=== PATIENT | male | born 1955 | race Caucasian/White ===

== ENCOUNTER 2017-12-02 14:26 | Emergency (ER) | payer BC, SELFPAY ==
[2017-12-02 14:27] VITALS: BP 153/90; PULSE 69; RESP 16; TEMP 36.8; O2SAT 97; BMI 27.8
--- NOTE | 2017-12-02 14:51 | EKG12_ITS ---
Test Reason : PALPS Blood Pressure : / mmHG Vent. Rate : 064 BPM Atrial Rate : 064 BPM P-R Int : 186 ms QRS Dur : 092 ms QT Int : 382 ms P-R-T Axes : 059 014 041 degrees QTc Int : 394 ms Normal sinus rhythm Normal ECG Confirmed by JANINE PINTO, MARY ([id number]), industrial editor JEWELL DIXON ([id number] on 12/05/2017 1:52:42 PM Referred By: Confirmed By:MARY MEHTA MD
[2017-12-02 14:59] LABS: Hematocrit 45.3 % (40-54); Hemoglobin 15.5 g/dl (13.0-16.5); Mean Corp Hgb Conc 34.2 g/gl (32-36); Mean Corpuscular Hgb 28.3 pg (27.0-32.0); Mean Corpuscular Volume 82.8 fL (80-94); Mean Platelet Vol. 10.5 fl (6.2-12.0); Platelet Count 206 K/mm3 (150-450); RBC Distribution Width CV 13.5 % (11.6-14.6); RBC Distribution Width SD 41.3 fl (35.1-43.9); Red Blood Count 5.47 M/mm3 (4.6-6.2); White Blood Count 6.6 K/mm3 (4.4-11.0)
[2017-12-02 15:00] LABS: Scan Indicated on CBC? Y/N NO
[2017-12-02 15:12] LABS: Anion Gap 7 (5-15); BUN 19 mg/dL (7-18); BUN/Creat Ratio 20.3 RATIO (10-20); Calcium,Total 8.7 mg/dL (8.5-10.1); Chloride 107 mmol/L (98-107); Creatinine, Serum 0.94 mg/dL (0.70-1.30); EST Glomerular Filtration Rate 87 mL/min (>60); Est Glom Filt Rate - Afr Amer 105 mL/min (>60); Estimated Creatinine Clearance 83.05 ml/min; Glucose 96 mg/dL (74-106); Sodium Level 141 mmol/L (136-145)
--- NOTE | 2017-12-02 15:50 | ED.DCSUM_ITS ---
- ER Visit Summary Date of Service: 12/02/17 Chief Complaint: Palpitations History of Present Illness: The patient is a 62 M Zentz with palpitations and states he feels his heartbeat throughout his entire body. Onset this morning while at work. He had no other symptoms. He denies shortness of breath, chest discomfort, difficulty breathing, nausea or vomiting or diaphoresis. Review of systems negative except for palpitations. Past medical history negative medications none Physical Examination: Vital signs are remarkable for an elevated blood pressure 153/90 he is not febrile or hypoxic. HEENT exam is unremarkable. Heart is regular without murmur, gallop or rub. S1 and S2 are normal. Lungs are clear to auscultation with good movement of air bilaterally. Abdomen is soft nontender with normal bowel sounds. There is no asymmetry, swelling, discoloration, leg vein distention, palpable cords or tenderness along the distribution of the deep venous system. He has a depressed affect. Neuro exam is nonfocal. Test Results: EKG revealed a sinus rhythm and is normal. CBC and BMP are normal. Emergency Department Course and Treatment: EKG was obtained to see if there is any evidence of preexcitation syndrome, PACs or PVCs. He also was placed on a monitor which was a sinus rhythm without ectopy CBC was obtained assessing for anemia and what I panel assessing for electron abdomen which may explain his palpitations. Treatment Plan: Follow-up physician as needed Disposition: Discharged to home in stable condition Impression: Palpitations This note was generated with [employer] dictation software. It may contain incorrect words, spelling, and punctuation that were not noted in review of the chart prior to signing ED Disposition - Plan for ED Patient: Disposition: Home or Assisted Living Chief Complaint: Palpitations Instructions: ED Palpitations Referrals: Benton Coelho MD [Primary Care Provider] - 3-5 Days if not improving
[2017-12-02 15:53] VITALS: BP 123/85; PULSE 56; RESP 14; O2SAT 99
== END 2017-12-02 16:01 | disposition home or self-care (01) ==
PROVIDERS: Emergency Provider Emergency Medicine; Family Provider Family Medicine; PCP Family Medicine
DX: R00.2 Palpitations (principal)
CPT/HCPCS: 80048; 85027; 93005; 99282; A4216

== ENCOUNTER 2022-05-19 17:44 | Emergency (ER) | payer MEDICARE, SELFPAY ==
[2022-05-19 17:45] VITALS: BP 129/68; PULSE 94; RESP 16; TEMP 37.1; O2SAT 97; BMI 26.8
--- NOTE | 2022-05-19 18:18 | CM.ED ---
Patient has a [facility] physician as his PCP. Unable to recall the name of his PCP. Meera ASH
[2022-05-19 18:55] LABS: Bacteria 0 SEEN /hpf (None Seen); Mucous, Urine 0 SEEN /hpf (<or=2+); Red Blood Cells-Urine 0 SEEN /hpf (0-5); Squamous Epithelial Cells - UA 0 SEEN /hpf (0-5); White Blood Cells 0 SEEN /hpf (0-5)
--- NOTE | 2022-05-19 18:59 | EX.ED.GUMALE ---
HPI History of Present Illness Chief Complaint: Complaint Detail of Chief Complaint: Urinary frequency. Enlarged prostate. Informant: patient Pain Onset: Month(s) Context: Gradual Onset Timing: Intermittent Current Severity: Mild Maximum Severity: Mild Narrative Narrative: 56-year-old male history of enlarged prostate and asthma. States for the last year he has had urinary symptoms. He has not seen a urologist. He said the last week he has had increasing urinary frequency. Waking up several times a night to urinate. Does not feel like he is emptying his bladder. Denies dysuria. Denies hematuria or clots. Denies any fever. He has never had a Hinton catheter. He says gotten the point now that he came in to have this evaluated. He is having trouble urinating at all. Only small amounts. Prior similar symptoms: Yes Recent Illness/Hospitalization: No PFSH PFSH Medical History Asthma Home Medications albuterol sulfate 90 mcg/actuation aerosol inhaler (Ventolin HFA) 1 puff inhalation Q4H PRN PRN Wheezing 12/02/17 [History Last Taken Unknown] tamsulosin 0.4 mg capsule (Flomax) 0.4 mg PO QHS #30 caps 05/19/22 [Rx Last Taken Unknown] Allergy/AdvReac Type Severity Reaction Status Date / Time No Known Allergies Allergy Verified 12/02/17 14:28 Social History Smoking Status: Never smoker ROS ROS ED ROS Narrative Urinary frequency. Review of Systems ROS Unobtainable: Denies due to encephalopathy Constitutional Constitutional ED: Denies chills or fever(s) Eyes Eyes: Denies blurry vision ENT ENT ED: Denies ear pain Cardiovascular Cardiovascular: Denies chest pain Respiratory/Chest Respiratory/Chest: Denies cough or dyspnea Gastrointestinal Gastrointestinal: Denies abdominal pain Genitourinary Genitourinary ED: Reports urinary frequency; Denies dysuria or hematuria Musculoskeletal Musculoskeletal: Denies arthralgias Integumentary Denies abscess Neurologic Neurologic: Denies headache(s) Psychiatric Psychiatric: Denies anxiety Endocrine Endocrinology: Denies polydipsia Hematologic/Lymphatic Hematologic/Lymphatic: Denies easy bleeding Allergic/Immunologic Allergic/Immunologic ED: Denies mouth swelling EXAM Physical Exam Narrative Exam Narrative: C6-year-old male no acute distress vital signs stable afebrile. HEENT exam unremarkable. Neck nontender. Lungs clear. Heart regular rhythm no murmur. Abdomen soft nondistended normal bowel sounds no peritoneal signs. Mild suprapubic tenderness. External exam unremarkable. Circumcised male. Nontender. Moving all 4 extremities. Nontender no edema. Awake and alert. No focal motor deficits. Const Vital Signs: 05/19/22 17:45 05/19/22 17:45 Temperature 98.8 F 98.8 F Temperature Source Temporal Temporal Pulse Rate 94 94 Respiratory Rate 16 16 Blood Pressure 129/68 H 129/68 H Blood Pressure Mean 88 88 Pulse Ox 97 97 Oxygen Delivery Method Room Air Room Air Positive well nourished and well developed; Negative for obese, cachectic, contractures or unkempt General Appearance ED: well developed and NAD; Negative for unkempt, cachectic, contractures or pallor Nutritional Appearance: Negative for cachectic or obese HEENT Reports moist mucous membranes; Denies dry mucous membranes normocephalic and atraumatic; Negative for trauma Mouth ED: No dry mucous membranes Mouth: No dry mucous membranes Eyes PERRL and EOMs intact bilaterally General Eye ED: Negative for pale conjunctiva or scleral icterus Neck no lymphadenopathy, supple and no JVD General: Negative for tenderness Resp normal respiratory effort and clear to auscultation bilaterally Effort and Inspection: Negative for retractions Auscultation: Negative for rales or rhonchi Cardio regular rate, regular rhythm, S1 normal heart sound, S2 normal heart sound and no murmurs GI non-distended and no masses; Negative for non-tender Auscultation: normoactive bowel sounds Palpation: soft and tender Negative for no CVA tenderness Bladder / Kidney Exam: No CVA tenderness Groin / Perineum Exam: Negative for edema Back/Spine no CVA tenderness General Back: Negative for CVA tenderness Extremity normal to inspection General Extremety ED: Negative for edema General Extremity: Negative for edema Neuro oriented x3, moves all extremities and no focal motor deficits Sensorium / Orientation: alert, oriented to person, oriented to place and oriented to time; Negative for orientation impaired or confused Motor Exam: strength 5/5 throughout Psych mental status grossly normal Appearance: Negative for unkempt Attitude: No agitated Mood & Affect: Negative for depressed Thought Process: normal thought process Thought Content: normal thought content Skin General Skin Exam: Negative for jaundice or pallor Lesions: no lesions Rashes: no rashes MDM MDM MDM Narrative Medical decision making narrative: 66-year-old male with what appears to be enlarged prostate with urinary frequency and suspected urinary retention. Bladder scan was only around 70 but I am unsure of the accuracy. Hinton cath will be placed. CBC and chemistry and urinalysis will be obtained. Repeat exam patient doing well. When the nurses placed a Hinton catheter he had about 170 cc of urine. It was clear with only a small amount of blood which I thought was trauma from placing the Hinton. Repeat exam he is doing well. We discussed options pulling the full Hinton catheter and starting him on Flomax and follow-up with urologist or leaving the Hinton catheter in starting him a Flomax and follow-up with the urologist and he chose to leave the Hinton catheter in. Lab Data Attestation: I reviewed the patient's lab results. Lab results narrative: CBC shows elevated white count of 17.4. H&H of 15 and 45. Electrolytes show a gap of 8 BUN and creatinine are 19 and 1.25. Glucose 140. UA negative. No nitrates no white or red cells. No bacteria. Labs: Laboratory Results - last 24 hr 05/19/22 05/19/22 05/19/22 18:52 19:15 19:15 WBC 17.4 H RBC 5.33 Hgb 15.1 Hct 45.9 MCV 86.1 MCH 28.3 MCHC 32.9 RDW Std Deviation 44.2 H RDW Coeff of Yuly 14.2 Plt Count 224 MPV 10.4 Immature Gran % (Auto) 0.400 Neut % (Auto) 83.6 H Lymph % (Auto) 5.6 L [place] % (Auto) 10.1 H Eos % (Auto) 0.1 Baso % (Auto) 0.2 Absolute Neuts (auto) 14.5 H Absolute Lymphs (auto) 0.98 Nucleated RBC % 0 Sodium 140 Potassium 3.9 Chloride 103 Carbon Dioxide 29.0 Anion Gap 8 BUN 19 H Creatinine 1.25 Estim Creat Clear Calc 59.21 Est GFR (MDRD) Af Amer 74 Est GFR (MDRD) Non-Af 61 BUN/Creatinine Ratio 15.2 Glucose 140 H Calcium 8.6 Urine Color Yellow Urine Clarity Clear Urine pH 7.0 Ur Specific [place] 1.010 Urine Protein Negative Urine Glucose (UA) Normal Urine Ketones Negative Urine Occult Blood Negative Urine Nitrite Negative Urine Bilirubin Negative Urine Urobilinogen 1 H Ur Leukocyte Esterase Negative Urine RBC 0 SEEN Urine WBC 0 SEEN Ur Squamous Epith Cells 0 SEEN Urine Bacteria 0 SEEN Urine Mucus 0 SEEN Discharge Plan Triage Chief Complaint: Complaint ED Provider: Francisco Vincent Dx/Rx/DC Orders Clinical Impression: Urinary frequency, Benign prostatic hyperplasia, Acute urinary retention Instructions: Benign Prostatic Hyperplasia, ED Hinton Catheter, Care Prescriptions: New tamsulosin [Flomax] 0.4 mg capsule 0.4 mg PO QHS Qty: 30 0RF No Action albuterol sulfate [Ventolin HFA] 1 INHALER inhaler 1 puff inhalation Q4H PRN PRN (Reason: Wheezing) Primary Care Provider: Russ Grimes Referrals: Pedro Garcia MD [Med Staff - Active Staff] - As soon as possible Benton Coelho MD [Non-Staff] - Activity Restrictions/Additional Instructions: Empty your Hinton catheter whenever three quarters full. Follow-up with either your primary care doctor or the urologist here at the hospital Dr. Forrest Garcia for further evaluation. They will remove the Hinton catheter and see if you are urinating appropriately. Flomax once a day to help hopefully enable you to pee more normally and reduce the size your prostate. Disposition Disposition: Home, Self Care
[2022-05-19 19:03] LABS: Color, Urine Yellow (Yellow); Glucose, Dipstick Normal (Normal); Ketone-Dipstick Negative (Negative); Leukocyte Esterase-Dipstick Negative /ul (Negative); Nitrite-Dipstick Negative (Negative); Occult Blood-Urine Negative /ul (Negative); Protein-Dipstick Negative (Negative); Urine Bilirubin Dipstick Negative (Negative); Urine Clarity Clear (Clear); Urine Urobilinogen 1 mg/dl (Normal)
[2022-05-19 19:33] LABS: Absolute Lymphocyte Count 0.98 X10^3/uL (0.83-4.51); Absolute Neutrophil Count 14.5 X10^3/uL (2.0-7.7); Basophil# 0.03 X10^3/uL; Basophil% 0.2 % (0-1); Eosinophil# 0.02 X10^3/uL; Eosinophils% 0.1 % (0-5); Hematocrit 45.9 % (40-54); Hemoglobin 15.1 g/dL (13.0-16.5); Lymphocyte # 0.98 X10^3/ul (0.83-4.51); Lymphocyte % 5.6 % (19-41); Mean Corp Hgb Conc 32.9 g/dL (32-36); Mean Corpuscular Hgb 28.3 pg (27.0-32.0); Mean Corpuscular Volume 86.1 fL (80-94); Mean Platelet Vol. 10.4 fl (6.2-12.0); Monocyte# 1.76 X10^3/uL; Monocyte% 10.1 % (0-10); NRBC Flagged by Analyzer 0 % (0-5); Neutrophil # 14.49 X10^3/uL (2.7-7.7); Neutrophil % 83.6 % (47-70); POSITIVE DIFFERENTIAL YES; Platelet Count 224 K/mm3 (150-450); RBC Distribution Width CV 14.2 % (11.6-14.6); RBC Distribution Width SD 44.2 fl (35.1-43.9); Red Blood Count 5.33 M/mm3 (4.6-6.2); White Blood Count 17.4 K/mm3 (4.4-11.0)
[2022-05-19 19:43] LABS: Differential Indicated SCAN CRITERIA MET
[2022-05-19 19:47] LABS: Anion Gap 8 (5-15); BUN 19 mg/dL (7-18); BUN/Creat Ratio 15.2 RATIO (10-20); Calcium,Total 8.6 mg/dL (8.5-10.1); Chloride 103 mmol/L (98-107); Creatinine, Serum 1.25 mg/dL (0.70-1.30); EST Glomerular Filtration Rate 61 mL/min (>60); Est Glom Filt Rate - Afr Amer 74 mL/min (>60); Estimated Creatinine Clearance 59.21 ml/min; Glucose 140 mg/dL (74-106); Potassium 3.9 mmol/L (3.5-5.1); Sodium Level 140 mmol/L (136-145)
[2022-05-19] MEDS: Acetaminophen 500 MG Tablet 1000 MG PO (20:56)
[2022-05-19 21:13] LABS: Platelet Estimate ADEQUATE (ADEQ); Red Cell Morphology NORM C+C NORMAL (NORM C&C)
[2022-05-19 21:59] VITALS: BP 119/77; PULSE 101; RESP 18; TEMP 38.2; O2SAT 94
--- NOTE | 2022-05-19 22:00 | ED.RN ---
PT'S CATHETER LEAKED. ATTEMPTED TO DEFLATE RE-INFLATE BALLOON. MONITORED FOR 20M, THURMAN STILL LEAKING. IRRIGATED THURMAN. NO ADDITIONAL LEAKING NOTED AROUND MEATUS. CHANGED TO LEG BG AND DC'D PT. PT & 'S QUESTIONS ASKED AND ANSWERED. PT CONFIRMS UNDERSTANDING OF DC INSTRUCTIONS.
[2022-05-21 12:37] LABS: Pathologist Review Reviewed
== END 2022-05-19 22:03 | disposition home or self-care (01) ==
PROVIDERS: Emergency Provider Emergency Medicine; PCP Physician Assistant; Visit Provider Emergency Medicine
DX: N40.1 Benign prostatic hyperplasia with lower urinary tract symptoms (principal); R35.0 Frequency of micturition; R33.8 Other retention of urine; J45.909 Unspecified asthma, uncomplicated
CPT/HCPCS: 51702; 80048; 81001; 85025; 99284; A4216

== ENCOUNTER 2022-06-01 11:24 | Emergency (ER) | payer MEDICARE, SELFPAY ==
[2022-06-01 11:25] VITALS: BP 131/68; PULSE 79; RESP 18; TEMP 36.1; O2SAT 100; BMI 25.5
--- NOTE | 2022-06-01 11:43 | EDS_ITS ---
HPI HPI - GI History of Present Illness Chief Complaint: Abd Pain Informant: patient and spouse/S.O. Narrative Narrative: Patient sent in here from PCP outpatient CT abdomen pelvis concerning stating perforation. Patient has intermittent suprapubic left lower quadrant pain for the past couple weeks. Patient reports was seen for urine retention couple weeks ago in the ED Hinton catheter was placed proximally 200 cc output. He was reporting urine frequency at that time. From report wanted to leave it if any follow-up with urology Dr. Garcia few days later Hinton was removed he is put on antibiotics for coverage of urinary infection. Continue to have intermittent increasing pain. 3 days ago significant reporting having fevers. He saw PCP office has been on Augmentin. CT scan performed today Miya went home he was called back to go to the emergency department. He is here currently. No history of diverticulitis in the past no colonoscopies in the past. Appendectomy in the past. Prior similar symptoms: No PFSH PFSH Medical History Asthma Home Medications albuterol sulfate 90 mcg/actuation aerosol inhaler (Ventolin HFA) 1 puff inhalation Q4H PRN PRN Wheezing 12/02/17 [History Last Taken Unknown] tamsulosin 0.4 mg capsule (Flomax) 0.4 mg PO QHS #30 caps 05/19/22 [Rx Last Taken Unknown] Allergy/AdvReac Type Severity Reaction Status Date / Time No Known Allergies Allergy Verified 06/01/22 11:27 Social History Smoking Status: Never smoker [facility] ED Constitutional Constitutional ED: Reports fever(s); Denies chills or sweats Eyes Eyes: Denies change in vision ENT ENT ED: Denies dysphagia or sore throat Cardiovascular Cardiovascular: Denies chest pain, leg edema, palpitations or racing heartbeat Respiratory/Chest Respiratory/Chest: Denies cough, dyspnea or dyspnea on exertion Gastrointestinal Gastrointestinal: Reports abdominal pain; Denies diarrhea, nausea or vomiting Genitourinary Genitourinary ED: Denies dysuria, hematuria or urinary frequency Musculoskeletal Musculoskeletal: Denies back pain, extremity pain or neck pain Integumentary Denies rash or wounds Neurologic Neurologic: Denies headache(s), paresthesias or weakness EXAM Physical Exam Const Vital Signs: 06/01/22 11:25 06/01/22 12:25 06/01/22 13:00 Temperature 97.0 F L Temperature Source Temporal Pulse Rate 79 Respiratory Rate 18 18 18 Blood Pressure 131/68 H Blood Pressure Mean 89 Pulse Ox 100 Oxygen Delivery Method Room Air 06/01/22 14:00 06/01/22 15:00 06/01/22 13:57 Temperature Temperature Source Pulse Rate Respiratory Rate 18 18 Blood Pressure 125/76 H Blood Pressure Mean 92 Pulse Ox Oxygen Delivery Method Positive well nourished and well developed General Appearance ED: well developed and NAD HEENT Reports moist mucous membranes normocephalic and atraumatic Eyes PERRL, EOMs intact bilaterally and conjunctivae normal General Eye ED: Yes normal appearance of both eyes Neck no lymphadenopathy and supple General: Negative for tenderness Chest Wall Chest: Negative for tenderness Resp normal respiratory effort and normal air movement Effort and Inspection: symmetric chest movement; Negative for respiratory distress Cardio regular rate, regular rhythm and no murmurs Peripheral Pulses: pulses 2+ throughout GI normal to inspection, nondistended, normoactive bowel sounds GI Narrative: Tender to deep palpation left lower quadrant, there is no guarding or rebound. Palpation: Negative for guarding or rebound tenderness present Back/Spine no CVA tenderness and no thoracic nor lumbar tenderness Extremity normal to inspection General Extremety ED: Negative for edema or tenderness General Extremity: Negative for edema Neuro oriented x3 and no sensory deficits noted Sensorium / Orientation: awake and alert Skin no rashes or lesions noted and no wounds MDM MDM MDM Narrative Medical decision making narrative: Patient nontoxic vital signs are stable. With reported perforation from history, assuming its of microperforation with his exam. Attempting to obtain report at this time. Labs were obtained with lactic acid blood cultures fluids. He will be kept NPO. I will order Zosyn for coverage at this time. Declines any pain medicines. 1230: Obtaining report from Katelynn Chacon, no concerns for pneumoperitoneum. From report notes an irregular shaped extraluminal air 3.1 x 11.3 cm. There is a punctate foci of extraluminal air distal to the sigmoid level. Punctate extraluminal air in the left upper abdomen with thickening of the duodenal proximal jejunal mucosa with fat stranding. Concerns for origin being at the duodenal jejunal junction. Patient clinically remained stable antibiotics are given I spoke with covering surgeon Dr. Salas discussed findings on CT. He will come see the patient. Currently working on getting the imagings to be reviewed at this facility. CBC returned white count currently 8.9 hemoglobin 14.8. 1240: Nursing able to communicate over facility, they are trying to push the imagings to the radiology department currently. Patient and spouse is updated. 1310: Patient evaluated by surgeon Dr. Salas, images were able to be reviewed in the system, he notes the concern is from the distal third of small bowels. He states this requires management at a tertiary center and cannot be done here. He recommends transfer. 1350: I spoke with transfer line at [facility] who relayed message to surgeon Dr. Reed, wanted patient to go to the emergency department to be evaluated surgery. I spoke with the ED physician Dr. Egan updated on patient's history and findings. Image studies will be sent with patient to the emergency department there. Family and patient updated. Lab Data Attestation: I reviewed the patient's lab results. Labs: Laboratory Results - last 24 hr 06/01/22 06/01/22 06/01/22 12:05 12:05 12:05 WBC 8.9 RBC 5.19 Hgb 14.8 Hct 43.6 MCV 84.0 MCH 28.5 MCHC 33.9 RDW Std Deviation 41.6 RDW Coeff of Yuly 13.5 Plt Count 304 MPV 9.8 Immature Gran % (Auto) 0.300 Neut % (Auto) 81.4 H Lymph % (Auto) 11.[address] [place] % (Auto) 6.2 Eos % (Auto) 0.6 Baso % (Auto) 0.5 Absolute Neuts (auto) 7.2 Absolute Lymphs (auto) 0.97 Nucleated RBC % 0 PT 13.9 INR 1.1 APTT 25.8 Sodium 138 Potassium 3.8 Chloride 105 Carbon Dioxide 26.0 Anion Gap 7 BUN 14 Creatinine 0.90 Estim Creat Clear Calc 82.24 Est GFR (MDRD) Af Amer 108 Est GFR (MDRD) Non-Af 90 BUN/Creatinine Ratio 15.6 Glucose 124 H Lactic Acid Calcium 8.6 Blood Type Antibody Screen 06/01/22 06/01/22 12:05 12:05 WBC RBC Hgb Hct MCV MCH MCHC RDW Std Deviation RDW Coeff of Yuly Plt Count MPV Immature Gran % (Auto) Neut % (Auto) Lymph % (Auto) [place] % (Auto) Eos % (Auto) Baso % (Auto) Absolute Neuts (auto) Absolute Lymphs (auto) Nucleated RBC % PT INR APTT Sodium Potassium Chloride Carbon Dioxide Anion Gap BUN Creatinine Estim Creat Clear Calc Est GFR (MDRD) Af Amer Est GFR (MDRD) Non-Af BUN/Creatinine Ratio Glucose Lactic Acid 1.0 Calcium Blood Type A POSITIVE Antibody Screen NEGATIVE Critical Care Time Critical Care Time: Yes Critical care time (excluding procedures): 30-74 minutes, Discussing w/Patient &/or Family/Supervisor Fine Grading, Discussing w/Consultants, Arranging Admission or Transfer, Performing Direct Patient Care at Bedside and - (35 minutes) Discharge Plan Triage Chief Complaint: Abd Pain ED Provider: Roderick Loo Dx/Rx/DC Orders Clinical Impression: Pneumoperitoneum, Abdominal pain, History of BPH, Inflammation of small intestine Prescriptions: No Action albuterol sulfate [Ventolin HFA] 1 INHALER inhaler 1 puff inhalation Q4H PRN PRN (Reason: Wheezing) tamsulosin [Flomax] 0.4 mg capsule 0.4 mg PO QHS Qty: 30 0RF Primary Care Provider: Russ Grimes Referrals: Russ Grimes PA [Primary Care Provider] - Disposition Disposition: DC/Tx to Another Type of HCF Discharge Location: [facility] Discharge Date/Time: 06/01/22 15:31
[2022-06-01] MEDS: 0.9% Normal Saline 1,000 ML 1000 ML IV (11:56)
[2022-06-01 12:25] VITALS: RESP 18
[2022-06-01 12:25] LABS: Absolute Lymphocyte Count 0.97 X10^3/uL (0.83-4.51); Absolute Neutrophil Count 7.2 X10^3/uL (2.0-7.7); Basophil# 0.04 X10^3/uL; Basophil% 0.5 % (0-1); Eosinophil# 0.05 X10^3/uL; Eosinophils% 0.6 % (0-5); Hematocrit 43.6 % (40-54); Hemoglobin 14.8 g/dL (13.0-16.5); Lymphocyte # 0.97 X10^3/ul (0.83-4.51); Mean Corp Hgb Conc 33.9 g/dL (32-36); Mean Corpuscular Hgb 28.5 pg (27.0-32.0); Mean Platelet Vol. 9.8 fl (6.2-12.0); Monocyte# 0.55 X10^3/uL; Monocyte% 6.2 % (0-10); NRBC Flagged by Analyzer 0 % (0-5); Neutrophil # 7.21 X10^3/uL (2.7-7.7); Neutrophil % 81.4 % (47-70); Platelet Count 304 K/mm3 (150-450); RBC Distribution Width CV 13.5 % (11.6-14.6); RBC Distribution Width SD 41.6 fl (35.1-43.9); Red Blood Count 5.19 M/mm3 (4.6-6.2); White Blood Count 8.9 K/mm3 (4.4-11.0)
[2022-06-01 12:40] LABS: Anion Gap 7 (5-15); BUN 14 mg/dL (7-18); BUN/Creat Ratio 15.6 RATIO (10-20); Calcium,Total 8.6 mg/dL (8.5-10.1); Chloride 105 mmol/L (98-107); EST Glomerular Filtration Rate 90 mL/min (>60); Est Glom Filt Rate - Afr Amer 108 mL/min (>60); Estimated Creatinine Clearance 82.24 ml/min; Glucose 124 mg/dL (74-106); Potassium 3.8 mmol/L (3.5-5.1); Sodium Level 138 mmol/L (136-145)
[2022-06-01 12:50] LABS: International Normalized Ratio 1.1; Partial Thromboplast Time 25.8 Seconds (24.1-36.2); Prothrombin Time (Protime)PT. 13.9 SECONDS (11.7-14.9)
[2022-06-01 13:00] VITALS: RESP 18
[2022-06-01] MEDS: 0.9% Normal Saline 1,000 ML 150 ML IV (13:00)
[2022-06-01 13:57] VITALS: RESP 18
[2022-06-01 14:00] VITALS: RESP 18
--- NOTE | 2022-06-01 14:13 | NURSING ---
PHYSICIANS CALLED. ETA OF 1515.
[2022-06-01 15:00] VITALS: BP 125/76
--- NOTE | 2022-06-01 15:21 | ED.RN ---
ED TO ED NURSING REPORT GIVEN AT THIS TIME.
== END 2022-06-01 15:31 | disposition other institution (70) ==
PROVIDERS: Emergency Provider Emergency Medicine; PCP Physician Assistant; Visit Provider Emergency Medicine
DX: K66.8 Other specified disorders of peritoneum (principal); N40.0 Benign prostatic hyperplasia without lower urinary tract symptoms; J45.909 Unspecified asthma, uncomplicated
CPT/HCPCS: 80048; 83605; 85025; 85610; 85730; 86850; 86900; 86901; 87040; 87811; 96365; 99284; J7030; A4216